=== PATIENT | female | born 1975 | race Caucasian/White ===

== ENCOUNTER 2017-07-19 07:27 | Inpatient (IN) | payer OTHER ==
[2017-07-19] MEDS ORDERED: LACTATED RINGERS 1,000 ML ONE (08:10)
[2017-07-19] MEDS ORDERED: LACTATED RINGERS 1,000 ML IV ONE (08:20)
[2017-07-19] MEDS ORDERED: REGLAN IV ONE (08:48)
[2017-07-19] MEDS ORDERED: PITOCin/NS 20 UNIT/1000ML DRIP 20,000 MILLIUNITS/1,000 ML BAG IV ONE (08:48)
[2017-07-19] MEDS ORDERED: REGLAN ONE (08:48)
[2017-07-19] MEDS ORDERED: ANCEF/STERILE WATER 2 GM/20 ML 2 GM/20 ML SYRINGE IV ONE (08:48)
[2017-07-19] MEDS ORDERED: BICITRA ONE (08:48)
[2017-07-19] MEDS ORDERED: PEPCID IV ONE ×2 (08:48)
[2017-07-19] MEDS ORDERED: BICITRA PO ONE (08:48)
[2017-07-19] MEDS ORDERED: ZOFRAN ONE (08:55)
[2017-07-19] MEDS ORDERED: ANCEF/STERILE WATER 2 GM/20 ML 2 GM/20 ML SYRINGE IV NR (09:00)
[2017-07-19] MEDS ORDERED: LACTATED RINGERS 1,000 ML IV SCH (09:00)
[2017-07-19] MEDS ORDERED: PITOCin/NS 20 UNIT/1000ML DRIP 20 UNITS/1,000 ML BAG IV SCH ×2 (09:00→11:00)
[2017-07-19 09:03] LABS: Hematocrit 40.5 % (30.3-42.9); Hemoglobin 13.1 gm/dl (10.1-14.3); Mean Corpuscular HGB Conc 32 % (30-34); Mean Corpuscular Hemoglobin 27 pg (28-32); Mean Corpuscular Volume 85 fl (79-97); Platelet Count 219 K/mm3 (140-440); Red Blood Count 4.78 M/mm3 (3.65-5.03); Red Cell Distribution Width 15.1 % (13.2-15.2)
[2017-07-19 09:05] LABS: Alanine Aminotransferase 9 units/L (7-56)
--- NOTE | 2017-07-19 09:15 | History and Physical Report ---
History of Present Illness Date of examination: 07/19/17 Date of admission: 07/19/17 07:28 Chief complaint: Contractions History of present illness: Pt is a 41yo HF EDC 08/05/17; EGA 37 4/7 weeks presents to L&D complaining of contractions. She received late care at [facility] and has GDM controlled with Metformin; however records are not available and GBS is unknown. She is having repetitive late decelerations in Triage, Cx 3/70/V/-2 Will proceed with a Stat C Section Past History Past Medical History: diabetes Past Surgical History: no surgical history Family/Genetic History: none Social history: no significant social history, single - Obstetrical History Expected Date of Delivery: 08/05/17 Actual Gestation: 37 Week(s) 4 Day(s) : 6 Medications and Allergies Allergies Allergy/AdvReac Type Severity Reaction Status Date / Time No Known Allergies Allergy Verified 07/19/17 07:33 Home Medications Medication Instructions Recorded Confirmed Last Taken Type Vit-Fe Fumar-FA [ 1 tab PO QDAY 07/19/17 07/19/17 07/18/17 14: 00 History Vitamin] 1 metFORMIN [Glucophage] 500 mg PO BID 07/19/17 07/19/17 07/18/17 17:00 History 1 Active Meds: Active Medications Lactated Ringer's (Lactated Ringers) 1,000 mls @ 999 mls/hr IV BOLUS ONE Stop: 07/19/17 09:20 Cefazolin Sodium (Ancef/Sterile Water 2 Gm/20 Ml) 2 gm in 20 mls @ 80 mls/hr IV PREOP NR; Protocol Stop: 07/20/17 23:59 Lactated Ringer's (Lactated Ringers) 1,000 mls @ 2,250 mls/hr IV PREOP NUZHAT Stop: 07/20/17 09:27 Last Admin: 07/19/17 09:02 Dose: 2,250 mls/hr Oxytocin/Sodium Chloride (Pitocin/Ns 20 Unit/1000ml Drip) 20 units in 1,000 mls @ 0 mls/hr IV TITR NUZHAT Review of Systems All systems: negative - Vital Signs Vital signs: Vital Signs Pulse BP 98 H 139/85 07/19/17 08:00 07/19/17 08:00 Temp Pulse Resp BP Pulse Ox 97.7 F 89 185/96 96 07/19/17 08:28 07/19/17 08:49 07/19/17 08:49 07/19/17 08:06 - Physical Exam Breasts: Positive: deferred Cardiovascular: Regular rate Lungs: Positive: Clear to auscultation Abdomen: Positive: normal appearance Genitourinary (Female): Positive: normal external genitalia Uterus: Positive: enlarged - Obstetrical FHR: category 2 Uterine Contraction Monitor Mode: External Cervical Dilatation: 3 Cervical Effacement Percentage: 70 station: -2 Uterine Contraction Pattern: Irregular Uterine Tone Measurement Phase: Contraction Results Result Diagrams: 07/19/17 08:30 07/19/17 08:30 Abnormal lab results 07/19/17 07/19/17 07/19/17 Range/Units 08:21 08:30 08:30 WBC 15.8 H (4.5-11.0) K/mm3 MCH 27 L (28-32) pg Creatinine 0.5 L (0.7-1.2) mg/dL POC Glucose 216 H (70-105) All other labs normal. Assessment and Plan - Patient Problems (1) 37 weeks gestation of Onset Date: 07/19/17 Current Visit: Yes Status: Acute Plan to address problem: A: IUP @ 37 4/7 weeks GDM - controlled on Metformin AMA Non-reassuring surveillance P: Admit to L&D for a Stat C Section Accuchecks Obtain records (2) GDM (gestational diabetes mellitus) Onset Date: 07/19/17 Current Visit: Yes Status: Acute Qualifiers: Gestational diabetes mellitus control: oral hypoglycemic-controlled Trimester: third trimester Qualified Code(s): O24.415 - Gestational diabetes mellitus in , controlled by oral hypoglycemic drugs (3) AMA (advanced maternal age) multigravida 35+ Onset Date: 07/19/17 Current Visit: Yes Status: Acute Qualifiers: Trimester: third trimester Qualified Code(s): O09.523 - Supervision of elderly multigravida, third trimester
[2017-07-19] MEDS ORDERED: ANCEF/STERILE WATER 2 GM/20 ML IV ONE (09:25)
[2017-07-19] MEDS ORDERED: NACL 0.9% IR ONE (09:30)
[2017-07-19] MEDS ORDERED: WATER FOR IRRIG STERILE IR ONE (09:30)
[2017-07-19 09:41] LABS: Bacteria,Urine 1+ /HPF (Negative); Bilirubin,Urine NEG (Negative); Blood,Urine SM (Negative); Color,Urine Yellow (Yellow); Protein,Urine <15 mg/dL mg/dL (Negative); Urobilinogen,Urine < 2.0 mg/dL (<2.0)
[2017-07-19] MEDS ORDERED: ASTRAMORPH PF 10MG/10ML ONE (09:47)
--- NOTE | 2017-07-19 10:26 | Operative Report ---
Operative Report Operative Report: Date of procedure: 07/19/2017 Pre-operative diagnosis: 1. Intrauterine at 37-4/7 weeks 2. Non- reassuring surveillance 3. Gestational diabetes 4. Advanced maternal age Post-operative diagnosis: Same Procedure name(s): Primary low transverse section Surgeon: Dhiraj Dorsey MD Finish Grinder: None Anesthesia: Spinal anesthesia by Dr. Brown EBL: 300 mls Findings: A 2652 g male Apgars 8 at 1 minute and 9 at 5 minutes. Thick meconium fluid. True knot in the umbilical cord. Normal uterus. Normal tubes and ovaries bilaterally Procedure: After the patient was prepped and draped in usual sterile fashion, and after satisfactory level of epidural anesthesia was obtained, the skin knife was used to make a transverse skin incision. The incision was excised down to layer of the fascia, which was nicked in the midline and extended laterally using the Bovie cautery. The rectus muscles were dissected off the rectus fascia both superiorly and inferiorly. The rectus bellies in the midline, and the peritoneum was entered under direct visualization. The peritoneal incision was extended superiorly and inferiorly. A bladder flap was created and the bladder blade was then placed. The uterus was scored in a curvilinear linear fashion, entered in the midline revealing thick meconium amniotic fluid. The infant's head was delivered onto the surgical field, and the oropharynx and nasopharynx were bulb suctioned. The rest of the 's body was delivered, cord was doubly clamped and cut and the was handed to the waiting respiratory team. Cord blood was then obtained. The placenta was manually removed from the uterus, and the uterus removed from its normal anatomical position. After gentle uterine lavage, the incision was inspected and found to be without extensions. It was then closed in 2 layers using 0 Vicryl suture in a running interlocking fashion, the second layer imbricating the first. After good hemostasis was achieved, copious amounts or irrigation was performed, and the gutters were suctioned free of blood and blood clots. Tisseel sealant was sprayed across the uterine incision. The uterus was then returned to its normal anatomical position, and after excellent hemostasis assured, the peritoneum was re-approximated using 3-0 Vicryl suture in a running interlocking fashion, and then the rectus muscles were re-approximated using 3-0 Vicryl suture in a [id number] configuration. The fascia was then re-approximated using 0 Vicryl suture in running interlocking fashion. The subcutaneous layer was made hemostatic using Bovie cautery, the Tisseel sealant was sprayed across the fascial incision and the skin edges re- approximated using 4-0 Vicryl suture in a sub-cuticular fashion. Patient tolerated the procedure well was transported to recovery in stable condition.
[2017-07-19] MEDS ORDERED: LANSINOH TP PRN (10:29)
[2017-07-19] MEDS ORDERED: ZOFRAN IV PRN ×2 (10:29→11:08)
[2017-07-19] MEDS ORDERED: TUCKS PAD TP PRN (10:29)
[2017-07-19] MEDS ORDERED: PERCOCET 5/325 PO PRN (10:29)
[2017-07-19] MEDS ORDERED: NARCAN 0.4 MG/1 ML IV PRN (10:29)
[2017-07-19] MEDS ORDERED: TORADOL IV PRN (10:29)
[2017-07-19] MEDS ORDERED: MYLICON PO PRN (10:29)
[2017-07-19] MEDS ORDERED: PHENERGAN PR PRN ×2 (10:29→11:08)
[2017-07-19] MEDS ORDERED: NORCO 5/325 PO PRN (10:29)
[2017-07-19] MEDS ORDERED: MILK OF MAGNESIA PO PRN (10:29)
[2017-07-19] MEDS ORDERED: SENOKOT PO PRN (10:29)
[2017-07-19] MEDS ORDERED: TYLENOL PO PRN (10:29)
[2017-07-19] MEDS ORDERED: SODIUM CHLORIDE FLUSH SYRINGE 10 ML IV NR (11:00)
--- NOTE | 2017-07-19 13:28 | Anesthesia Consultation ---
Anesthesia Consult and Med Hx Date of service: 07/19/17 - Airway Anesthetic Teeth Evaluation: Poor, Chipped ROM Head & Neck: Adequate Mental/Hyoid Distance: Adequate Mallampati Class: Class III Intubation Access Assessment: Probably Good - Pulmonary Exam CTA: Yes - Cardiac Exam Cardiac Exam: No Murmur - Pre-Operative Health Status ASA Pre-Surgery Classification: ASA3 Proposed Anesthetic Plan: Epidural - Pulmonary Hx Smoking: No Hx Asthma: No Hx Respiratory Symptoms: No SOB: No COPD: No Home Oxygen Therapy: No Hx Pneumonia: No Hx Sleep Apnea: No - Cardiovascular System Hx Hypertension: No Hx Coronary Artery Disease: No Hx Heart Attack/AMI: No Hx Angina: No Hx Percutaneous Transluminal Coronary Angioplasty (PTCA): No Hx Cardia Arrhythmia: No Hx Pacemaker: No Hx Internal Defibrillator: No Hx Valvular Heart Disease: No Hx Heart Murmur: No Hx Peripheral Vascular Disease: No - Central Nervous System Hx Neuromuscular Disorder: No Hx Seizures: No CVA: No Hx Back Pain: No Hx Psychiatric Problems: No - Gastrointestinal Hx Ulcer: No Hx Gastroesophageal Reflux Disease: No - Endocrine Hx Renal Disease: No Hx End Stage Renal Disease: No Hx Non-Insulin Dependent Diabetes: Yes Hx Hypothyroidism: No Hx Hyperthyroidism: No - Hematic Hx Anemia: No Hx Sickle Cell Disease: No - Other Systems Hx Alcohol Use: No Hx Substance Use: No Hx Cancer: No
--- NOTE | 2017-07-19 13:29 | Anesthesia Day of Surgery ---
Anesthesia Day of Surgery - Day of Surgery Patient Examined: Yes Patient H&P Reviewed: Yes Patient is NPO: Yes
--- NOTE | 2017-07-19 13:30 | Post Anesthesia Evaluation ---
- Post Anesthesia Evaluation Patient Participated: Yes Airway Patent: Yes Stable Respiratory Function: Yes Nausea/Vomiting: No Temp > 96.8F: Yes Pain Manageable: Yes Adequeate Hydration: Yes Anesthesia Complications: No Block Receding Appropriately: Yes Patient on Ventilator: No
[2017-07-19] MEDS ORDERED: D50W (25GM) Syringe IV PRN (16:49)
[2017-07-19] MEDS ORDERED: ANCEF/NS 1 GM/50 ML 1 GM/50 ML BAG IV SCH (17:00)
[2017-07-19] MEDS: HumuLIN R SUB-Q SCH ×2 (17:32→23:10)
[2017-07-19] MEDS ORDERED: ceFAZolin 1 GM in NACL 0.9% 20 ML IV SCH (18:00)
[2017-07-19] MEDS: NORMODYNE PO SCH (21:01)
[2017-07-19] MEDS: D5LR 1,000 ML IV SCH (21:03)
[2017-07-19 23:01] LABS: Hematocrit 33.8 % (30.3-42.9)
[2017-07-20] MEDS: D5LR 1,000 ML IV SCH (06:00)
[2017-07-20] MEDS ORDERED: BOOSTRIX IM ONE ×2 (06:05→10:31)
[2017-07-20] MEDS: HumuLIN R SUB-Q SCH ×4 (09:18→21:59)
--- NOTE | 2017-07-20 09:37 | Progress Note ---
Assessment and Plan - Patient Problems (1) 37 weeks gestation of Onset Date: 07/19/17 Current Visit: Yes Status: Resolved (2) GDM (gestational diabetes mellitus) Onset Date: 07/19/17 Current Visit: Yes Status: Chronic Qualifiers: Gestational diabetes mellitus control: oral hypoglycemic-controlled Trimester: third trimester Qualified Code(s): O24.415 - Gestational diabetes mellitus in , controlled by oral hypoglycemic drugs (3) AMA (advanced maternal age) multigravida 35+ Onset Date: 07/19/17 Current Visit: Yes Status: Chronic Qualifiers: Trimester: third trimester Qualified Code(s): O09.523 - Supervision of elderly multigravida, third trimester (4) Status post Onset Date: 07/20/17 Current Visit: Yes Status: Resolved Plan to address problem: A: S/P C Section - POD #1 Doing well Asymptomatic anemia - stable GDM - stable P: Continue RPOC Anticipate discharge in 24-48hrs Subjective - Subjective Date of service: 07/20/17 Principal diagnosis: s/p C Section - POD #1 Interval history: Pt is feeling well without complaints. Tolerating a liquid diet without nausea or vomiting. Patient reports: appetite normal, voiding normally, pain well controlled, ambulating normally, no flatus, no nauseated : doing well, in NICU Objective - Vital Signs Latest vital signs: Vital Signs Temp Pulse Resp BP BP Pulse Ox 07/20/17 07:30 98.6 F 90 18 138/82 07/20/17 03:55 98.9 F 91 H 18 146/80 146/80 96 07/20/17 00:35 99.1 F 92 H 16 142/79 95 07/19/17 21:01 78 172/90 07/19/17 20:55 98.6 F 79 16 172/90 96 07/19/17 18:16 80 188/82 07/19/17 16:40 82 198/92 07/19/17 16:34 98.2 F 86 20 189/105 189/105 94 07/19/17 11:35 98.5 F 82 20 153/85 98 07/19/17 11:20 98.6 F 77 16 152/80 97 07/19/17 11:15 78 14 144/79 98 07/19/17 11:10 72 12 149/74 98 07/19/17 11:05 69 8 L 147/75 97 07/19/17 11:00 69 13 146/73 98 07/19/17 10:55 72 10 L 154/74 97 07/19/17 10:50 79 9 L 151/56 97 07/19/17 10:45 71 12 145/69 98 07/19/17 10:41 74 9 L 143/77 97 07/19/17 10:40 75 10 L 143/77 98 07/19/17 10:39 75 8 L 144/71 98 07/19/17 10:35 78 12 144/71 97 07/19/17 10:33 80 12 143/74 97 07/19/17 10:30 84 15 143/74 97 07/19/17 10:27 82 13 138/72 98 07/19/17 10:25 83 12 138/72 97 07/19/17 10:21 16 07/19/17 10:18 98.6 F 86 12 139/78 98 Intake and Output 07/19/17 07/20/17 07/20/17 22:59 06:59 14:59 Intake Total 1120 240 Output Total 600 300 2 Balance -600 820 238 Intake: IV 1000 D5lr 1,000 ml @ 125 mls/ 1000 hr IV DIRECT NUZHAT Rx#: [id number] Oral 120 240 Output: Urine 350 300 2 Indwelling Catheter 350 300 1 Emesis 250 Other: Total, Intake Amount 120 240 Total, Output Amount 350 300 1 Voiding Method Toilet # Voids 1 Indwelling Catheter 1 - Exam Breasts: Present: deferred Cardiovascular: Present: Regular rate Lungs: Present: Clear to auscultation Abdomen: Present: normal appearance, soft Uterus: Present: normal, firm, fundal height below umbilicus Extremities: Present: normal Incision: Present: normal, dry, intact, dressed - Labs Labs: Abnormal lab results 07/19/17 07/19/17 Range/Units 16:29 23:02 POC Glucose 223 H 240 H (70-105) Laboratory Tests 07/19/17 07/19/17 07/19/17 08:21 08:30 08:30 WBC 15.8 H RBC 4.78 Hgb 13.1 Hct 40.5 MCV 85 MCH 27 L MCHC 32 RDW 15.1 Plt Count 219 Creatinine 0.5 L Estimated GFR > 60 POC Glucose 216 H Uric Acid AST 16 ALT 9 Lactate Dehydrogenase 174 Urine Color Urine Turbidity Urine pH Ur Specific Elim Urine Protein Urine Glucose (UA) Urine Ketones Urine Blood Urine Nitrite Urine Bilirubin Urine Urobilinogen Ur Leukocyte Esterase Urine WBC (Auto) Urine RBC (Auto) U Epithel Cells (Auto) Urine Bacteria (Auto) RPR Blood Type Antibody Screen 07/19/17 07/19/17 07/19/17 08:30 08:30 08:30 WBC RBC Hgb Hct MCV MCH MCHC RDW Plt Count Creatinine Estimated GFR POC Glucose Uric Acid 4.1 AST ALT Lactate Dehydrogenase Urine Color Urine Turbidity Urine pH Ur Specific Elim Urine Protein Urine Glucose (UA) Urine Ketones Urine Blood Urine Nitrite Urine Bilirubin Urine Urobilinogen Ur Leukocyte Esterase Urine WBC (Auto) Urine RBC (Auto) U Epithel Cells (Auto) Urine Bacteria (Auto) RPR Nonreactive Blood Type O POSITIVE Antibody Screen Negative 07/19/17 07/19/17 07/19/17 09:00 16:29 22:49 WBC RBC Hgb 11.0 Hct 33.8 D MCV MCH MCHC RDW Plt Count Creatinine Estimated GFR POC Glucose 223 H Uric Acid AST ALT Lactate Dehydrogenase Urine Color Yellow Urine Turbidity Clear Urine pH 7.0 Ur Specific Elim 1.005 Urine Protein <15 mg/dl Urine Glucose (UA) 50 Urine Ketones Neg Urine Blood Sm Urine Nitrite Neg Urine Bilirubin Neg Urine Urobilinogen < 2.0 Ur Leukocyte Esterase Tr Urine WBC (Auto) 1.0 Urine RBC (Auto) 2.0 U Epithel Cells (Auto) < 1.0 Urine Bacteria (Auto) 1+ RPR Blood Type Antibody Screen 07/19/17 23:02 WBC RBC Hgb Hct MCV MCH MCHC RDW Plt Count Creatinine Estimated GFR POC Glucose 240 H Uric Acid AST ALT Lactate Dehydrogenase Urine Color Urine Turbidity Urine pH Ur Specific Elim Urine Protein Urine Glucose (UA) Urine Ketones Urine Blood Urine Nitrite Urine Bilirubin Urine Urobilinogen Ur Leukocyte Esterase Urine WBC (Auto) Urine RBC (Auto) U Epithel Cells (Auto) Urine Bacteria (Auto) RPR Blood Type Antibody Screen
[2017-07-20] MEDS: FEOSOL PO SCH (10:19)
[2017-07-20] MEDS: PRENATAL VITAMIN PO SCH (10:19)
[2017-07-20] MEDS: NORMODYNE PO SCH ×2 (10:21→21:16)
[2017-07-20] MEDS ORDERED: M-M-R II VACCINE SUB-Q ONE (10:31)
[2017-07-20] MEDS: MOTRIN PO PRN (18:17)
--- NOTE | 2017-07-21 09:03 | Progress Note ---
Assessment and Plan - Patient Problems (1) 37 weeks gestation of Onset Date: 07/19/17 Current Visit: Yes Status: Resolved (2) GDM (gestational diabetes mellitus) Onset Date: 07/19/17 Current Visit: Yes Status: Chronic Qualifiers: Gestational diabetes mellitus control: oral hypoglycemic-controlled Trimester: third trimester Qualified Code(s): O24.415 - Gestational diabetes mellitus in , controlled by oral hypoglycemic drugs (3) AMA (advanced maternal age) multigravida 35+ Onset Date: 07/19/17 Current Visit: Yes Status: Chronic Qualifiers: Trimester: third trimester Qualified Code(s): O09.523 - Supervision of elderly multigravida, third trimester (4) Status post Onset Date: 07/20/17 Current Visit: Yes Status: Resolved Plan to address problem: A: S/P C Section - POD #2 Doing well Asymptomatic anemia - stable GDM - stable P: May go home tomorrow. Subjective - Subjective Date of service: 07/21/17 Principal diagnosis: s/p C Section - POD #2 Interval history: Pt is feeling well without complaints. Tolerating a reg diet without nausea or vomiting, ambulating and voiding without difficulty. Patient reports: appetite normal, voiding normally, pain well controlled, flatus , ambulating normally, no dizzy ambulation, no nauseated : doing well, in NICU Objective - Vital Signs Latest vital signs: Vital Signs Temp Pulse Resp BP BP Pulse Ox 07/20/17 23:55 98.2 F 76 18 145/70 07/20/17 21:16 89 157/89 07/20/17 16:50 97.9 F 89 18 156/79 07/20/17 11:23 76 95 07/20/17 11:22 98.2 F 80 18 151/81 96 07/20/17 10:21 80 138/82 Intake and Output 07/20/17 07/21/17 07/21/17 22:59 06:59 14:59 Intake Total 480 240 Balance 480 240 Intake: Oral 360 Intake, Free Water 120 240 Other: Total, Intake Amount 360 # Voids Void 3 1 - Exam Breasts: Present: deferred Cardiovascular: Present: Regular rate Lungs: Present: Clear to auscultation Abdomen: Present: normal appearance, soft Uterus: Present: normal, firm, fundal height below umbilicus Extremities: Present: normal Incision: Present: normal, dry, intact, dressed - Labs Labs: Abnormal lab results 07/20/17 07/20/17 07/20/17 Range/Units 08:38 11:28 18:10 POC Glucose 219 H 215 H 268 H (70-105) 07/20/17 07/21/17 Range/Units 21:45 08:04 POC Glucose 191 H 127 H (70-105)
[2017-07-21] MEDS: HumuLIN R SUB-Q SCH ×4 (09:05→22:07)
[2017-07-21] MEDS: FEOSOL PO SCH (10:52)
[2017-07-21] MEDS: NORMODYNE PO SCH ×2 (10:52→21:57)
[2017-07-21] MEDS: PRENATAL VITAMIN PO SCH (10:52)
[2017-07-21] MEDS ORDERED: NORMODYNE PO SCH (22:00)
--- NOTE | 2017-07-22 08:36 | Progress Note ---
Assessment and Plan - Patient Problems (1) 37 weeks gestation of Onset Date: 07/19/17 Current Visit: Yes Status: Resolved (2) GDM (gestational diabetes mellitus) Onset Date: 07/19/17 Current Visit: Yes Status: Chronic Qualifiers: Gestational diabetes mellitus control: oral hypoglycemic-controlled Trimester: third trimester Qualified Code(s): O24.415 - Gestational diabetes mellitus in , controlled by oral hypoglycemic drugs (3) AMA (advanced maternal age) multigravida 35+ Onset Date: 07/19/17 Current Visit: Yes Status: Chronic Qualifiers: Trimester: third trimester Qualified Code(s): O09.523 - Supervision of elderly multigravida, third trimester (4) Status post Onset Date: 07/20/17 Current Visit: Yes Status: Resolved Plan to address problem: A: S/P C Section - POD #3 Doing well Asymptomatic anemia - stable GDM - stable Hypertension - currently uncontrolled on Labetolol 300mg BID P: Will add Procardia XL 30mg QD May possibly go home later today if BP improves. (5) Hypertens NOS-del w/ complication Onset Date: 07/22/17 Current Visit: Yes Status: Acute Subjective - Subjective Date of service: 07/22/17 Principal diagnosis: s/p C Section - POD #3 Interval history: Pt is feeling well without complaints. Tolerating a reg diet without nausea or vomiting, ambulating and voiding without difficulty. Patient reports: appetite normal, voiding normally, pain well controlled, flatus , ambulating normally : doing well, in NICU Objective - Vital Signs Latest vital signs: Vital Signs Temp Pulse Resp BP BP Pulse Ox 07/22/17 05:52 98 F 77 20 163/80 07/22/17 01:40 84 170/70 07/22/17 01:02 98.6 F 85 20 187/90 95 07/21/17 21:57 73 164/82 07/21/17 21:51 99 F 73 22 164/82 07/21/17 21:48 99.0 F 79 20 183/82 96 07/21/17 16:35 98.2 F 77 16 161/87 98 07/21/17 12:32 98.2 F 77 18 186/87 97 07/21/17 10:52 82 162/84 07/21/17 08:49 98.5 F 84 18 162/84 98 Intake and Output 07/21/17 07/22/17 07/22/17 22:59 06:59 14:59 Intake Total 360 Balance 360 Intake: Oral 360 Other: Total, Intake Amount 360 # Voids Void 2 # Bowel Movements 1 - Exam Breasts: Present: deferred Cardiovascular: Present: Regular rate Lungs: Present: Clear to auscultation Abdomen: Present: normal appearance, soft Uterus: Present: normal, firm, fundal height below umbilicus Extremities: Present: normal Incision: Present: normal, dry, intact - Labs Labs: Abnormal lab results 07/21/17 07/21/17 07/21/17 Range/Units 11:35 16:32 22:07 POC Glucose 233 H 191 H 219 H (70-105) 07/22/17 Range/Units 08:06 POC Glucose 125 H (70-105)
[2017-07-22] MEDS: PROCARDIA XL PO SCH (09:31)
[2017-07-22] MEDS: FEOSOL PO SCH (09:31)
[2017-07-22] MEDS: PRENATAL VITAMIN PO SCH (09:32)
[2017-07-22] MEDS: NORMODYNE PO SCH ×2 (11:24→22:29)
[2017-07-22] MEDS: MOTRIN PO PRN ×2 (11:25→17:42)
[2017-07-22] MEDS: HumuLIN R SUB-Q SCH ×3 (12:46→22:34)
[2017-07-22] MEDS: GLUCOPHAGE PO SCH (17:43)
[2017-07-23] MEDS: MOTRIN PO PRN (06:07)
[2017-07-23] MEDS: HumuLIN R SUB-Q SCH ×2 (08:10→12:30)
[2017-07-23] MEDS: GLUCOPHAGE PO SCH (08:17)
--- NOTE | 2017-07-23 08:52 | Progress Note ---
Assessment and Plan - Patient Problems (1) 37 weeks gestation of Onset Date: 07/19/17 Current Visit: Yes Status: Resolved (2) GDM (gestational diabetes mellitus) Onset Date: 07/19/17 Current Visit: Yes Status: Chronic Qualifiers: Gestational diabetes mellitus control: oral hypoglycemic-controlled Trimester: third trimester Qualified Code(s): O24.415 - Gestational diabetes mellitus in , controlled by oral hypoglycemic drugs (3) AMA (advanced maternal age) multigravida 35+ Onset Date: 07/19/17 Current Visit: Yes Status: Chronic Qualifiers: Trimester: third trimester Qualified Code(s): O09.523 - Supervision of elderly multigravida, third trimester (4) Status post Onset Date: 07/20/17 Current Visit: Yes Status: Resolved Plan to address problem: A: S/P C Section - POD #4 Doing well Asymptomatic anemia - stable GDM - stable Hypertension - currently controlled on Labetolol 300mg BID and Procardia XL 30mg QD P: May go home today Follow up in office in 1 week for BP check. (5) Hypertens NOS-del w/ complication Onset Date: 07/22/17 Current Visit: Yes Status: Acute Subjective - Subjective Date of service: 07/23/17 Principal diagnosis: s/p C Section - POD #4 Interval history: Pt is feeling well without complaints. Tolerating a reg diet without nausea or vomiting, ambulating and voiding without difficulty. BP's improved on Labetolol 300mg BID and Procardia XL 30mg QD Patient reports: appetite normal, voiding normally, pain well controlled, flatus , ambulating normally [place]: doing well, in NICU Objective - Vital Signs Latest vital signs: Vital Signs Temp Pulse Resp BP BP BP Pulse Ox 07/23/17 05:06 98.9 F 90 18 136/72 07/23/17 00:25 98.9 F 84 18 147/72 07/22/17 22:29 89 146/83 07/22/17 20:50 98.6 F 92 H 16 149/81 149/81 07/22/17 11:24 165/80 07/22/17 10:58 98.5 F 83 18 168/75 97 Intake and Output 07/22/17 07/23/17 07/23/17 22:59 06:59 14:59 Intake Total 480 360 Output Total 1 Balance 480 359 Intake: Intake, Free Water 480 360 Output: Urine 1 Void 1 Other: Total, Output Amount 1 # Voids Void 1 1 - Exam Cardiovascular: Present: Regular rate Lungs: Present: Clear to auscultation Abdomen: Present: normal appearance Uterus: Present: normal, firm, fundal height below umbilicus Extremities: Present: normal Incision: Present: normal, dry, intact - Labs Labs: Abnormal lab results 07/22/17 07/22/17 07/22/17 Range/Units 12:00 17:03 22:19 POC Glucose 262 H 226 H 277 H (70-105) 07/23/17 Range/Units 08:06 POC Glucose 137 H (70-105)
--- NOTE | 2017-07-23 09:05 | Discharge Summary ---
Providers - Providers Date of Admission: 07/19/17 07:28 Date of discharge: 07/23/17 Attending physician: ERICK GONSALVES Primary care physician: ERICK GONSALVES Hospitalization Reason for admission: active labor, IUP at term, other (Non-reassuring monitoring) Delivery: Procedure: section, primary low transverse Episiotomy: none Incision: normal, dry, intact Other procedures: none complications: other (elevated BP's) Discharge diagnosis: IUP at term delivered [place] baby: male Hospital course: Pt is a 41yo HF EDC 08/05/17; EGA 37 4/7 weeks who presented to L&D complaining of contractions. She was having repetitive late decelerations in Triage, and thus was delivered by a Stat C Section. Post operative course was unremarkable except for elevated BP's which were controlled by Labetolol 300mg BID and Procardia XL 30mg QD. She will therefore be discharged to home on POD # 4 in stable condition, with plans to follow up in the office in 1 week for BP check. Condition at discharge: Good Disposition: DC-01 TO HOME OR SELFCARE - Discharge Diagnoses (1) 37 weeks gestation of Status: Resolved (2) GDM (gestational diabetes mellitus) Status: Chronic Qualifiers: Gestational diabetes mellitus control: oral hypoglycemic-controlled Trimester: third trimester Qualified Code(s): O24.415 - Gestational diabetes mellitus in , controlled by oral hypoglycemic drugs (3) AMA (advanced maternal age) multigravida 35+ Status: Chronic Qualifiers: Trimester: third trimester Qualified Code(s): O09.523 - Supervision of elderly multigravida, third trimester (4) Status post Status: Resolved (5) Hypertens NOS-del w/ complication Status: Resolved Plan - Discharge Medications Prescriptions: Ferrous Sulfate [Feosol 325 MG tab] 325 mg PO BID #60 tablet HYDROcodone/APAP 5-325 [Frannie 5-325 mg TAB] 1 each PO Q6HR PRN #30 tablet PRN Reason: Pain, Moderate (4-6) Ibuprofen [Motrin 800 MG tab] 800 mg PO Q6H PRN #30 tablet PRN Reason: Pain, Mild (1-3) Labetalol [Normodyne TAB] 300 mg PO BID #60 tablet metFORMIN [Glucophage] 500 mg PO BIDDIAB #60 tablet NIFEdipine XL [Procardia Xl] 30 mg PO QDAY #30 tablet Vit-Fe Fumar-FA [ Vitamin] 1 each PO QDAY #30 tablet - Provider Discharge Summary Activity: routine, no sex for 6 weeks, no heavy lifting 4 weeks, no strenuous exercise Diet: routine Instructions: routine Additional instructions: [] Smoking cessation referral if applicable(refer to patient education folder for contact #) [] Refer to [facility]'s [facility] Booklet Call your doctor immediately for: * Fever > 100.5 * Heavy vaginal bleeding ( >1 pad per hour) * Severe persistent headache * Shortness of breath * Reddened, hot, painful area to leg or breast * Drainage or odor from incision. * Keep incision clean and dry at all times and follow doctor's instructions regarding bathing/showering - Follow up plan Follow up: ERICK GONSALVES MD [Primary Care Provider] - 7 Days
[2017-07-23] MEDS: PROCARDIA XL PO SCH (11:58)
[2017-07-23] MEDS: NORMODYNE PO SCH (11:58)
[2017-07-23] MEDS: PRENATAL VITAMIN PO SCH (11:59)
[2017-07-23] MEDS: FEOSOL PO SCH (11:59)
[2017-07-23 12:01] VITALS: BP 151/83
== END 2017-07-23 16:00 | disposition home or self-care (01) | DRG 766 ==
LOC: TRG 07:27 → APU 07:28 → TRG 07:29 → OB 11:45
PROVIDERS: ADMIT Obstetrics & Gynecology; ATTEND Obstetrics & Gynecology
PROC: 10D00Z1 Extraction of Products of Conception, Low, Open Approach (ICD-10-PCS; principal; 2017-07-19)
PROC: 3E0234Z Introduction of Serum, Toxoid and Vaccine into Muscle, Percutaneous Approach (ICD-10-PCS; 2017-07-20)
DX: O76 Abnormality in fetal heart rate and rhythm complicating labor and delivery (principal); Z3A.37 37 weeks gestation of pregnancy; Z37.0 Single live birth; O09.513 Supervision of elderly primigravida, third trimester; Z23 Encounter for immunization; O24.425 Gestational diabetes mellitus in childbirth, controlled by oral hypoglycemic drugs; O90.81 Anemia of the puerperium; D64.9 Anemia, unspecified; O16.5 Unspecified maternal hypertension, complicating the puerperium
CPT/HCPCS: 36415; 59025; 81001; 82565; 82962; 83615; 84450; 84460; 84550; 85014; 85018; 85027; 86592; 86850; 86900; 86901; 88307; 99211; C9250; G0463; J0690; J1815; J2274; J2405; J2590; J2765; J7120; J7121